=== PATIENT | female | born 1995 | race African-American/Black ===

== ENCOUNTER 2018-01-04 22:04 | Observation (INO) | payer MEDICARE ==
--- NOTE | 2018-01-04 23:16 | PDOC ---
History of Present Illness - General Chief Complaint: Redness To Affected Area Stated Complaint: PAIN Time Seen by Provider: 01/04/18 22:44 History Source: Patient - History of Present Illness Initial Comments: 01/04/18 23:11 Patient is a 22 year old AA female with PMH of diabetes and cellulitis presents to ED with redness of her left lower leg and foot. She has had these symptoms since Thursday. She states that it is cellulitis because she has had the same presentation in the past. Patient was originally in the [facility] ED and was worked up and was ready to be admitted but patient left stating "it was dirty, I didn't get any food, it was taking to long." Patient expresses wanting to be admitted. She has left lower leg erythema, swelling, tenderness but denies fever /chills, abdominal pain, headaches, N/V/D, urinary symptoms. She last ate earlier today. Past History - Past Medical History Allergies/Adverse Reactions: Allergies Allergy/AdvReac Type Severity Reaction Status Date / Time No Known Allergies Allergy Verified 01/04/18 22:14 Home Medications: Ambulatory Orders Insulin (Levemir) [Levemir Vial] 18 unit SQ HS 01/04/18 Metformin HCl [Metformin HCl ER] 1,000 mg PO DAILY 01/04/18 Sitagliptin Phosphate [Januvia] 100 mg PO DAILY 01/04/18 Cephalexin [Keflex] 500 mg PO BID #14 capsule 01/06/18 Miscellaneous Medical Supply [Glucometer Device] 1 each SQ ASDIR #1 kit Miscellaneous Medical Supply [Glucometer Test Strips #100] 1 each SQ ASDIR #10 box 01/06/18 Miscellaneous Medical Supply [Lancets] 1 each SQ ASDIR #1 box 01/06/18 COPD: No Diabetes: Yes (Type 2) Other medical history: L leg lymphedema - Suicide/Smoking/Psychosocial Hx Smoking History: Never smoked Have you smoked in the past 12 months: No Information on smoking cessation initiated: No Hx Alcohol Use: No Drug/Substance Use Hx: No Substance Use Type: None Review of Systems - Review of Systems Able to Perform ROS?: Yes Constitutional: No: Chills, Fever, Weakness HEENTM: No: Blurred Vision, Throat Pain Respiratory: No: Cough, Shortness of Breath, Wheezing Cardiac (ROS): No: Chest Pain ABD/GI: No: Abdominal Distended, Diarrhea, Nausea, Vomiting : Yes: Other (LMP December 21) Integumentary: Yes: See HPI, Erythema (left lower extremity, wrapping around and extending to the foot) *Physical Exam - Vital Signs Last Vital Signs Temp Pulse Resp BP Pulse Ox 98.0 F 114 H 18 124/87 99 01/04/18 22:14 01/04/18 22:14 01/04/18 22:14 01/04/18 22:14 01/04/18 22:14 - Physical Exam General Appearance: Yes: Nourished, Obese. No: Apparent Distress HEENT: positive: EOMI, Normal ENT Inspection Neck: positive: Supple Respiratory/Chest: positive: Lungs Clear, Normal Breath Sounds. negative: Crackles, Rales, Rhonchi Cardiovascular: positive: Regular Rhythm, Regular Rate, S1, S2. negative: JVD, Murmur Vascular Pulses: Dorsalis-Pedis (R): 2+ Gastrointestinal/Abdominal: positive: Normal Bowel Sounds, Soft. negative: Guarding, Rebound, Tenderness Extremity: positive: Tender (left lower leg), Swelling (left lower leg including left foot), Erythema (left lower leg including left foot) Neurologic: positive: director digital advertising II-XII NML intact, Fully Oriented, Alert ED Treatment Course - LABORATORY CBC & Chemistry Diagram: 01/06/18 06:15 01/06/18 06:15 - ADDITIONAL ORDERS Additional order review: Doppler of RLE to r/o DVT Medical Decision Making - Medical Decision Making 01/09/18 18:44 Patient is a 22 yo AA female with PMH of DM and cellulitis presented to ED with her cousins for cellulitis treatment. She was originally at [facility], but patient left because she was "not happy with the service". In the ED, patient was started on Cefazolin. Doppler of R lower leg was ordered to rule out DVT. Patient was handed off to Dr. Ridley. *DC/Admit/Observation/Transfer Diagnosis at time of Disposition: Lymphedema - Discharge Dispostion Disposition: HOME Condition at time of disposition: Good - Prescriptions - Referrals - Patient Instructions - Post Discharge Activity
--- NOTE | 2018-01-04 23:33 | PDOC ---
Attending Attestation - Resident Resident Name: Katherine Gordon - ED Attending Attestation I have performed the following: I have examined & evaluated the patient, The case was reviewed & discussed with the resident, I agree w/resident's findings & plan, Exceptions are as noted <Marck Abernathy - Last Filed: 01/05/18 01:19> - HPI HPI: 01/05/18 00:04 The patient is 22-year-old female with past medical history of DM and cellulitis presents to the emergency department with L. lower extremity redness. Patient presents with redness to the L. lower leg for the past 2 days. The patient reports going to [email or web address] last night, where a workup was started but the patient states she AMAed before completion. Denies fever, chills, cough or a headache. Denies chest pain or shortness of breath. Denies numbness, tingling or loss of sensations. Denies vertigo or dizziness. Allergies: Unsure of antibiotic allergies. LMP: 12/21/2017 Social history: None reported Surgical history: None reported PCP: None reported. - Physicial Exam PE: 01/05/18 00:05 GENERAL: Well developed, well nourished. Awake and alert. No acute distress. HEENT: Normocephalic, atraumatic. PERRLA, EOMI. No conjunctival pallor. Sclera are non- icteric. Moist mucous membranes. Oropharynx is clear. CARDIOVASCULAR: Regular rate and rhythm. No murmurs, rubs, or gallops. Distal pulses are 2+ and symmetric. PULMONARY: No evidence of respiratory distress. Lungs clear to auscultation bilaterally. No wheezing, rales or rhonchi. ABDOMINAL: Soft. Non-tender. Non-distended. No rebound or guarding. No organomegaly. Normoactive bowel sounds. MUSCULOSKELETAL Normal range of motion at all joints. No bony deformities or tenderness. No CVA tenderness. EXTREMITIES: (+) Swelling to the L. lower extremity from the knee down to the foot. Erythema noted. No warmth. No cyanosis. No clubbing. No calf tenderness. SKIN: (+) Not warm. dry. Normal capillary refill. No rashes. No jaundice. - Medical Decision Making 01/05/18 00:07 Documentation prepared by Lisa Sierra, acting as medical record transcriber for Marck Abernathy DO. 01/05/18 01:22 Hu Grace MD 01/05/2018 01:08 EST EXAM: Venous duplex unilateral left lower extremity HISTORY: Rule out DVT COMPARISON: None. FINDINGS: There is no DVT in the left lower extremity. IMPRESSION: No DVT. <Lisa Sierra - Last Filed: 01/05/18 01:22>
[2018-01-04] MEDS ORDERED: CEFAZOLIN 1 GM/D5W 1 GM/50 ML BAG IVPB ONE (23:48)
[2018-01-05] MEDS ORDERED: ceFAZolin SODIUM 1 GM VIAL ONE ×3 (00:29→16:47)
[2018-01-05 00:38] LABS: BASO % 0.6 % (0-2.0); EOS % 0.7 % (0-4.5); HEMATOCRIT 37.4 % (32.4-45.2); HEMOGLOBIN 12.1 GM/dL (10.7-15.3); LYMPH % 21.1 % (8-40); MCH 24.2 pg (25.7-33.7); MCHC 32.4 g/dl (32.0-36.0); MEAN CELL VOLUME 74.7 fl (80-96); MEAN PLT VOLUME 9.2 fl (7.5-11.1); MONO % 4.7 % (3.8-10.2); NEUT % 72.9 % (42.8-82.8); PLATELET COUNT 298 K/MM3 (134-434); RBC 5.01 M/mm3 (3.60-5.2); RDW 16.3 % (11.6-15.6); WHITE BLOOD COUNT 20.3 K/mm3 (4.0-10.0)
[2018-01-05 01:11] LABS: ALBUMIN 3.2 g/dl (3.4-5.0); ALK PHOS 90 U/L (45-117); ANION GAP 8 (8-16); BILIRUBIN,TOTAL 0.3 mg/dL (0.2-1.0); BLOOD UREA NITROGEN 14 mg/dL (7-18); CALCIUM 8.8 mg/dL (8.5-10.1); CHLORIDE 102 mmol/L (98-107); CO2 26 mmol/L (21-32); CREATININE 0.9 mg/dL (0.55-1.02); GLUCOSE,RANDOM 185 mg/dL (74-106); SGPT/ALT 24 U/L (12-78); SODIUM 136 mmol/L (136-145)
[2018-01-05 01:13] LABS: POTASSIUM 4.2 mmol/L (3.5-5.1)
[2018-01-05 01:14] LABS: SGOT/AST 24 U/L (15-37)
--- NOTE | 2018-01-05 01:24 | PDOC ---
*Physical Exam - Vital Signs Last Vital Signs Temp Pulse Resp BP Pulse Ox 98.0 F 114 H 18 124/87 99 01/04/18 22:14 01/04/18 22:14 01/04/18 22:14 01/04/18 22:14 01/05/18 00:44 ED Treatment Course - LABORATORY CBC & Chemistry Diagram: 01/05/18 00:20 01/05/18 00:20 - ADDITIONAL ORDERS Additional order review: Laboratory Results 01/05/18 01/05/18 01/05/18 00:41 00:30 00:20 Sodium Potassium Chloride Carbon Dioxide Anion Gap BUN Creatinine Creat Clearance w eGFR POC Glucometer 202.98885 Random Glucose Lactic Acid 1.6 Calcium Total Bilirubin AST ALT Alkaline Phosphatase Total Protein Albumin Urine HCG, Qual Negative 01/05/18 00:20 Sodium 136 Potassium 4.2 Chloride 102 Carbon Dioxide 26 Anion Gap 8 BUN 14 Creatinine 0.9 Creat Clearance w eGFR > 60 POC Glucometer Random Glucose 185 H Lactic Acid Calcium 8.8 Total Bilirubin 0.3 AST 24 ALT 24 Alkaline Phosphatase 90 Total Protein 8.0 Albumin 3.2 L Urine HCG, Qual 01/05/18 01/05/18 00:41 00:20 RBC 5.01 MCV 74.7 L MCHC 32.4 RDW 16.3 H MPV 9.2 Neutrophils % 72.9 Lymphocytes % 21.1 Monocytes % 4.7 Eosinophils % 0.7 Basophils % 0.6 POC Glucometer 202.71202 - Medications Given in the ED: ED Medications Discontinued Medications Generic Name Dose Route Start Last Admin Trade Name Freq PRN Reason Stop Dose Admin Cefazolin Sodium 1 gm in 50 mls @ 100 mls/hr 01/04/18 23:48 01/05/18 00:43 Ancef 1 Gm Premixed Ivpb - IVPB 01/05/18 00:17 100 mls/hr ONCE ONE Administration Medical Decision Making - Medical Decision Making 01/05/18 01:25 WBC elevated IV Abx already given will end up in Med surg Hosp service. *DC/Admit/Observation/Transfer Diagnosis at time of Disposition: Lymphedema - Discharge Dispostion Condition at time of disposition: Stable Decision to Admit order: Yes - Referrals - Patient Instructions - Post Discharge Activity
--- NOTE | 2018-01-05 03:28 | HP ---
CHIEF COMPLAINT: swelling and redness of left lower extremity and foot PCP: HISTORY OF PRESENT ILLNESS: 22 y/o female presents with redness of left lower extremity starting under the knee and progressing to the left foot. States this began on Thursday and admits to subjective fevers for which she took OTC Motrin. Admits to tingling of left lower extremity. She has had past occurrence of cellulitis of left foot and lower extremity approximately 6 months ago. States she was given Vancomycin and had allergic reaction of itchyness for which she was given Benadryl. ER course was notable for: (1)cefazolin (2)doppler US of left lower extremity (3) Recent Travel: PAST MEDICAL HISTORY: DM II, cellulitis PAST SURGICAL HISTORY: denies Social History: Smoking: denies Alcohol: socially (approximately 1 drink/ month) Drugs: denies Family History: Allergies No Known Allergies Allergy (Verified 01/04/18 22:14) HOME MEDICATIONS: Home Medications Medication Instructions Recorded Insulin (Levemir) [Levemir Vial] 18 unit SQ HS 01/04/18 Metformin HCl [Metformin HCl ER] 1,000 mg PO DAILY 01/04/18 Sitagliptin Phosphate [Januvia] 100 mg PO DAILY 01/04/18 REVIEW OF SYSTEMS CONSTITUTIONAL: Admits: fever. Denies: chills, generalized weakness CARDIOVASCULAR: Absent: chest pain, syncope, palpitations RESPIRATORY: Absent: cough, shortness of breath, wheezing GASTROINTESTINAL: Absent: abdominal pain, nausea, vomiting, diarrhea SKIN: Admits: left lower extremity erythema, swelling NEUROLOGIC: Absent: headache, focal weakness, dizziness, PHYSICAL EXAMINATION Vital Signs - 24 hr 01/04/18 01/05/18 01/05/18 22:14 00:44 03:07 Temperature 98.0 F Pulse Rate 114 H Pulse Rate [ 91 H Right] Respiratory 18 18 Rate Blood Pressure 124/87 Blood Pressure 122/80 [Left Arm] O2 Sat by Pulse 99 99 100 Oximetry (%) GENERAL: Alert, awake, oriented, no acute distress. HEENT: NCAT, PERRL, EOMI, LUNGS: Clear to auscultation B/L. No wheezes crackles. HEART: RRR. S1, S2 auscultated no murmurs, rubs, gallops ABDOMEN: Soft, nontender to palpation. Bowel sounds auscultated X4 quadrants. No guarding, or rebound. EXTREMITIES: 2+ radial and dorsalis pedis pulses B/L. Left lower extremity below the knee, and foot swollen, erythematous. No streaking. Cracking of skin noted in between 4th and 5th toe of left foot. Laboratory Results - last 24 hr 01/05/18 01/05/18 01/05/18 00:20 00:20 00:20 WBC 20.3 H RBC 5.01 Hgb 12.1 Hct 37.4 MCV 74.7 L MCH 24.2 L MCHC 32.4 RDW 16.3 H Plt Count 298 MPV 9.2 Absolute Neuts (auto) 14.8 Neutrophils % 72.9 Lymphocytes % 21.1 Monocytes % 4.7 Eosinophils % 0.7 Basophils % 0.6 Nucleated RBC % 0 Sodium 136 Potassium 4.2 Chloride 102 Carbon Dioxide 26 Anion Gap 8 BUN 14 Creatinine 0.9 Creat Clearance w eGFR > 60 POC Glucometer Random Glucose 185 H Lactic Acid 1.6 Calcium 8.8 Total Bilirubin 0.3 AST 24 ALT 24 Alkaline Phosphatase 90 Total Protein 8.0 Albumin 3.2 L Urine HCG, Qual 01/05/18 01/05/18 00:30 00:41 WBC RBC Hgb Hct MCV MCH MCHC RDW Plt Count MPV Absolute Neuts (auto) Neutrophils % Lymphocytes % Monocytes % Eosinophils % Basophils % Nucleated RBC % Sodium Potassium Chloride Carbon Dioxide Anion Gap BUN Creatinine Creat Clearance w eGFR POC Glucometer 202.39880 Random Glucose Lactic Acid Calcium Total Bilirubin AST ALT Alkaline Phosphatase Total Protein Albumin Urine HCG, Qual Negative ASSESSMENT/PLAN: #Cellulitis -Left lower extremity and foot erythema, swelling, and tenderness -Begin Zosyn and Clindamycin -ID consult and Podiatry consult requested -F/U blood cultures #Diabetes II -Continue home medication of Levemir 18 units -Insulin sliding scale #Morbid obesity -BMI 48.4 -Professor Of Voice consult requested #Prophylaxis -5000units Heparin subq TID FEN No IV fluids No electrolyte repletion Diabetic diet Visit type - Emergency Visit Emergency Visit: Yes ED Registration Date: 01/05/18 Care time: The patient presented to the Emergency Department on the above date and was hospitalized for further evaluation of their emergent condition. - New Patient This patient is new to me today: Yes Date on this admission: 01/05/18 - Critical Care Critical Care patient: No Hospitalist Screening - Colonoscopy Questionnaire Colonoscopy Questionnaire: Colonoscopy Questionnaire - Patient: 50 - 75 years old and never had a screening colonoscopy: Unknown History of colon or rectal polyps, or CA: Unknown History of IBD, Crohn's disease or UC: Unknown History of abdominal radiation therapy as a child: Unknown - Relative: 1 with colon or rectal CA, or polyps at age 60 or younger: Unknown Colon or rectal CA diagnosed at age 45 or younger: Unknown Multiple relatives with colon or rectal CA: Unknown - Outcome: Screening Result: Negative Screen
[2018-01-05] MEDS ORDERED: PIPERACILLIN/TAZOB 3.375 GM 3.375 GM in DEXTROSE 5%-WATER - 50 ML IVPB ONE (03:45)
[2018-01-05 03:54] VITALS: BMI 48.4
[2018-01-05] MEDS ORDERED: DEXTROSE 5%-WATER - 50 ML IVPB ONE (04:15)
[2018-01-05] MEDS ORDERED: PIPERACILLIN/TAZOBACTAM 3.375 GM VIAL IVPB ONE (04:15)
--- NOTE | 2018-01-05 04:23 | PN ---
Teaching Attending Note Name of Resident: Randy Tadeo ATTENDING PHYSICIAN STATEMENT I saw and evaluated the patient. I reviewed the resident's note and discussed the case with the resident. I agree with the resident's findings and plan as documented. SUBJECTIVE: Patient is a 22 year old woman with history of lymphedema, NIDDM and cellulitis presents to the ER with "tightness" and redness of her left lower leg and foot for 3 days. This is her 3rd presentation with same complaint in past 18 months. julio. She has left lower leg erythema, swelling, tenderness but denies fever/ chills, abdominal pain, headaches, N/V/D, urinary symptoms. She is up-to-date with foot care and eye care and is aware of breaks in the skin on the plantar surface of her left foot. OBJECTIVE: Alert, morbidly obese and in no acute distress. Vital Signs Period Temp Pulse Resp BP Sys/Vera Pulse Ox Last 24 Hr 98.0 F-98.2 F 90-114 18-18 122-132/80-87 99-100 HEENT: No Jaundice, eye redness or discharge, PERRLA, EOMI. Normocephalic, atraumatic. External ears are normal and hearing is grossly intact. No nasal discharge. Neck: Supple, nontender. No palpable adenopathy or thyromegaly. No JVD Chest: Good effort. Clear to auscultation and percussion. Heart: Regular. No S3, rub or murmur Abdomen: Not distended, soft, nontender and no HSM. No rebound or guarding. Normoactive bowel sounds. Ext: Bilateral non pitting leg edema. Erythema and tenderness on left foot and leg, warm but not very tender. Crease ulcer between 4th and 5th left toes as as well as plantar surface of 4th toe. Peripheral pulses intact. Skin: Warm and dry. No petechiae, rash or ecchymosis. Neuro: Alert. Oriented x3. CN 2-12 grossly intact. Sensation grossly intact in all four extremities and DTR are symmetric. Current Medications Generic Name Dose Route Start Last Admin Trade Name Freq PRN Reason Stop Dose Admin Heparin Sodium (Porcine) 5,000 unit 01/05/18 06:00 Heparin - SQ TID CLAUDINE Piperacillin Sod/Tazobactam 50 mls @ 100 mls/hr 01/05/18 10:00 Sod 3.375 gm/ Dextrose IVPB Q8H-IV [facility] Protocol Clindamycin Phosphate 600 mg in 50 mls @ 100 mls/hr 01/05/18 10:00 Cleocin 600 Mg Premix Ivpb - IVPB Q8H-IV [facility] Protocol Home Medications Medication Instructions Recorded Insulin (Levemir) [Levemir Vial] 18 unit SQ HS 01/04/18 Metformin HCl [Metformin HCl ER] 1,000 mg PO DAILY 01/04/18 Sitagliptin Phosphate [Januvia] 100 mg PO DAILY 01/04/18 Abnormal Lab Results 01/05/18 01/05/18 00:20 00:20 WBC 20.3 H MCV 74.7 L MCH 24.2 L RDW 16.3 H Random Glucose 185 H Albumin 3.2 L ASSESSMENT AND PLAN: 1. Cellulitis of left leg and foot - Had questionable allergic reaction to vancomycin, so will treat with Zosyn and Clindamycin pending culture report. The breaks in the skin on her left foot may be the source of recurrent infection. Patient counseled about diabetes foot care and eye care. Will consult podiatry and wound care. 2. DM - For now, we will hold her oral hypoglycemic agents and implement sliding scale insulin regimen. 3. Morbid obesity - Will provide patient all the necessary assistance to facilitate kezia loss and consult the meat and poultry inspector. 4. DVT prophylaxis - Heparin 5000u sq tid. 5. Advance directives - Full code
[2018-01-05] MEDS: HEPARIN NA (PORCINE) 5,000 UNITS/ML 1ML VIAL SQ SCH ×3 (05:44→21:19)
[2018-01-05] MEDS ORDERED: CLINDAMYCIN 600MG PREMIX IVPB 600 MG/50 ML BAG IVPB SCH (10:00)
[2018-01-05] MEDS ORDERED: PIPERACILLIN/TAZOB 3.375 GM 3.375 GM in DEXTROSE 5%-WATER - 50 ML IVPB SCH (10:00)
--- NOTE | 2018-01-05 10:59 | PN ---
Progress Note (short form) - Note Progress Note: ID consult dictated imp/reccd 22 year old female with recently diagnosed NIDDM, chronic lylmphedema LLE , recurrent cellulitis of the RLE (fourth time in 2 years) admitted with 3 day history of LLE started Thursday, felt like she had a fever, leg was red and swollen, seen at [facility]- got a dose of vancomycin and left came to [facility] yesterday with the same complaints no further fevers LLE cellulitis Chronic LLE lymphedema NIDDM obesity tinea pedis no history of MRSA no prior antibiotics as outpt received cefazolin, clindamycin , and zosyn continue cefazolin with transition to keflex when improved f/u cultures and labs antifungal foot powder needs diabetes education [facility] Problem List - Problems (1) Cellulitis Code(s): L03.90 - CELLULITIS, UNSPECIFIED Qualifiers: Laterality: left (2) Lymphedema Code(s): I89.0 - LYMPHEDEMA, NOT ELSEWHERE CLASSIFIED (3) Diabetes Code(s): E11.9 - TYPE 2 DIABETES MELLITUS WITHOUT COMPLICATIONS (4) Morbid obesity with BMI of 45.0-49.9, adult Code(s): E66.01 - MORBID (SEVERE) OBESITY DUE TO EXCESS CALORIES; Z68.42 - BODY MASS INDEX (BMI) 45.0-49.9, ADULT (5) Tinea pedis Code(s): B35.3 - TINEA PEDIS
[2018-01-05 11:29] LABS: URINE APPEARANCE TURBID; URINE BILIRUBIN NEGATIVE (<2.0 mg/dL); URINE COLOR STRAW; URINE GLUCOSE (UA) NEGATIVE (NEGATIVE); URINE KETONE NEGATIVE (NEGATIVE); URINE LEUK ESTERASE NEGATIVE (NEGATIVE); URINE NITRITE NEGATIVE (NEGATIVE); URINE PROTEIN NEGATIVE (NEGATIVE); URINE UROBILINOGEN NEGATIVE mg/dL (0.2-1.0)
[2018-01-05] MEDS ORDERED: DEXTROSE 5%-WATER 100 ML IVPB ONE ×2 (11:49→16:47)
[2018-01-05] MEDS: CEFAZOLIN 2 GM in DEXTROSE 5%-WATER 100 ML IVPB SCH ×2 (11:52→17:36)
--- NOTE | 2018-01-05 12:20 | CONS ---
DATE OF CONSULTATION: 01/05/2018 REQUESTING PHYSICIAN: The hospitalist service. HISTORY OF PRESENT ILLNESS: This is a 22-year-old woman who presents to the emergency room with erythema of her left lower extremity. She has a history of chronic lymphedema of that leg, which she reports she has had since childhood. This is her 4th episode. Three days ago, on Thursday, she developed erythema and pain of the leg. She felt feverish that day. She felt hot and cold. She was seen at [facility], and she was given a dose of vancomycin. She did not stay and she left. She reports that she was hospitalized in July of this year at [facility] for cellulitis of the leg. At that time, she was found to have diabetes and had a hemoglobin A1c of 12.4. She reports that her glucometer is broken. She has not been checking her sugars. She came yesterday to [place] after she went home from [facility]. She woke up in the morning, and her leg was still swollen. PAST MEDICAL HISTORY: Notable for diabetes, chronic lymphedema of the left lower extremity, cellulitis. She had 2 episodes last year and 2 this year. She has been hospitalized at [facility], at [facility], and now at [place]. SURGICAL HISTORY: Is unremarkable. SOCIAL HISTORY: There is no history of cigarette use. She drinks alcohol occasionally socially. No history of drug use. She lives with her brother. 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 ALLERGIES: No known drug allergies. MEDICATIONS: Include insulin, metformin, and Januvia. FAMILY HISTORY: Mom has a history of diabetes. REVIEW OF SYSTEMS: She reports feeling better today. The leg is less swollen. She denies any further fevers or chills. She has no headache, nausea, vomiting, diarrhea, or dysuria. Of note, she has seen a automotive consultant as an outpatient, a vascular surgeon, she has a tractor trailer driver, and apparently, they are working to get her a pump for her chronic lymphedema. She has a new PCP, as well. PHYSICAL EXAMINATION Vital signs: Her weight is 132 kg. She has been afebrile since admission. Temperature is 98.2; pulse of 87, blood pressure 119/63, respiratory rate 18, saturating 99% on room air. HEENT: She is normocephalic. Her eyes are anicteric. Neck: Supple. Lungs: Clear to auscultation. Heart: Regular rate and rhythm. Abdomen: Soft. She has no inguinal adenopathy. Extremities: She has lymphedema of her left lower extremity. She has minimal warmth. She has some mild patchy erythema below the knee. The leg is not painful to palpation. Of note, she has some tinea pedis of her toes. DIAGNOSTIC DATA: Labs are notable for a white count of 20.3, hemoglobin 12.1, platelets of 298. BUN is 14, creatinine 0.9. LFTs are normal. test is negative. Blood cultures are pending. Duplex of the leg was negative for DVT. SUMMARY: This is a 22-year-old woman with recently diagnosed diabetes, chronic lymphedema of the left lower extremity, recurrent cellulitis of the left lower extremity, admitted with a 3-day history of left lower extremity edema. She received cefazolin, clindamycin, and Zosyn. Of note, she has received vancomycin in the past. She always gets itching and is generally pre-medicated with Benadryl. I would continue cefazolin, would transition to Keflex when improved. I would follow up cultures and labs. Would add antifungal food powder. She needs diabetes education. Has vascular followup ongoing at [facility]. She should be counseled for weight loss, as well. Further recommendations to follow. BROOKE GUPTA M.D. [id number]
[2018-01-05] MEDS: TOLNAFTATE 1% POWDER 45 GM POW TP SCH ×2 (12:38→21:18)
--- NOTE | 2018-01-05 13:56 | PN ---
Teaching Attending Note Name of Resident: Mukul Guerrero ATTENDING PHYSICIAN STATEMENT I saw and evaluated the patient. I reviewed the resident's note and discussed the case with the resident. I agree with the resident's findings and plan as documented. SUBJECTIVE: Feels better . no pain inL Leg OBJECTIVE: NAD Cv: RRR. Lungs: CTAB Ext: L leg with non pitting edema. erythema over dorsal foot, leg and anterior thigh ASSESSMENT AND PLAN: 22 y/o lady with h/o Dm , ad cellulitis who presented with LLE erythema . she was found to have sepsis due to LLE cellulites 1- Sepsis due to LLE cellulites : - appreciate ID Recs . cont cefazolin - antifungal to toes 2- Dm : cont sitagliptin and levemir and SSI dispo ; pending improvement
[2018-01-05] MEDS ORDERED: KETOCONOZOLE 2% TOPICAL CREAM 15 GM TUBE TP SCH (14:00)
--- NOTE | 2018-01-05 14:44 | CONSULT ---
Consult - text type - Consultation Consultation Note: Podiatry Consultation: Pleasant 22 year old DM F presents with LLE swelling/redness. Patient states she has had bouts of flare-ups in the leg for quite some time. She is being managed at [facility] for vascular work up. She denies F/V/N/C/SOB/CP currently. Currently afebrile. Having treatment for lymphedema at [facility] as well. PMHx: IDDM, lymphedema Meds: noted ALL: NKMA ANTONIO: L foot: pedal pulses palpable, TG warm-warmer below the knee, CFT brisk to all toes. Some interdigital maceration noted bilaterally. There is persistent fixed erythema and warmth to the lower extremity below the knee. There is moderate erythema. There is gross edema to the foot and leg below the knee. There is no fluctuance, no purulent drainage, no open wound, no soft tissue crepitus. WBC: 20.3 Blood Cx: pending Imp: 22 year old DM F LLE cellulitis 1. IV abx per Infectious Disease 2. Leg elevation 3. C/w antifungal powder interdigital spaces 4. Xray L foot 5. Thank you for the courtesy of this consultation. Ramandeep Porras DPM
--- NOTE | 2018-01-05 16:16 | PN ---
Physical Exam: SUBJECTIVE: Patient is a 22 y/o female with a history of DM and cellulitis who is admitted for cellulitis of the left lower extremity. She had no events overnight and no complaints. OBJECTIVE: Vital Signs Period Temp Pulse Resp BP Sys/Vera Pulse Ox Last 24 Hr 98.0 F-98.3 F 80-114 18-22 110-132/63-87 97-100 GENERAL: The patient is awake, alert, and fully oriented, in no acute distress. HEAD: Normal with no signs of trauma. EYES: PERRL, extraocular movements intact LUNGS: Breath sounds equal, clear to auscultation bilaterally HEART: Regular rate and rhythm ABDOMEN: Soft, nontender, nondistended, EXTREMITIES: Left lower extremity edema, up to knee, warm to touch, one centimeter clean laceration at base of fourth toe, no pus expressed. 2+ PT pulse , DP pulse not appreciated, 5/5 strength LLE, patient able to ambulate Laboratory Results - last 24 hr 01/05/18 01/05/18 01/05/18 00:20 00:20 00:20 WBC 20.3 H RBC 5.01 Hgb 12.1 Hct 37.4 MCV 74.7 L MCH 24.2 L MCHC 32.4 RDW 16.3 H Plt Count 298 MPV 9.2 Absolute Neuts (auto) 14.8 Neutrophils % 72.9 Lymphocytes % 21.1 Monocytes % 4.7 Eosinophils % 0.7 Basophils % 0.6 Nucleated RBC % 0 Sodium 136 Potassium 4.2 Chloride 102 Carbon Dioxide 26 Anion Gap 8 BUN 14 Creatinine 0.9 Creat Clearance w eGFR > 60 POC Glucometer Random Glucose 185 H Lactic Acid 1.6 Calcium 8.8 Total Bilirubin 0.3 AST 24 ALT 24 Alkaline Phosphatase 90 Total Protein 8.0 Albumin 3.2 L Urine Color Urine Appearance Urine pH Ur Specific [place] Urine Protein Urine Glucose (UA) Urine Ketones Urine Blood Urine Nitrite Urine Bilirubin Urine Urobilinogen Ur Leukocyte Esterase Urine HCG, Qual 01/05/18 01/05/18 01/05/18 00:30 00:41 05:41 WBC RBC Hgb Hct MCV MCH MCHC RDW Plt Count MPV Absolute Neuts (auto) Neutrophils % Lymphocytes % Monocytes % Eosinophils % Basophils % Nucleated RBC % Sodium Potassium Chloride Carbon Dioxide Anion Gap BUN Creatinine Creat Clearance w eGFR POC Glucometer [phone] Random Glucose Lactic Acid Calcium Total Bilirubin AST ALT Alkaline Phosphatase Total Protein Albumin Urine Color Urine Appearance Urine pH Ur Specific [place] Urine Protein Urine Glucose (UA) Urine Ketones Urine Blood Urine Nitrite Urine Bilirubin Urine Urobilinogen Ur Leukocyte Esterase Urine HCG, Qual Negative 01/05/18 01/05/18 10:20 11:54 WBC RBC Hgb Hct MCV MCH MCHC RDW Plt Count MPV Absolute Neuts (auto) Neutrophils % Lymphocytes % Monocytes % Eosinophils % Basophils % Nucleated RBC % Sodium Potassium Chloride Carbon Dioxide Anion Gap BUN Creatinine Creat Clearance w eGFR POC Glucometer 242 Random Glucose Lactic Acid Calcium Total Bilirubin AST ALT Alkaline Phosphatase Total Protein Albumin Urine Color Straw Urine Appearance Turbid Urine pH 5.0 Ur Specific [place] 1.016 Urine Protein Negative Urine Glucose (UA) Negative Urine Ketones Negative Urine Blood Negative Urine Nitrite Negative Urine Bilirubin Negative Urine Urobilinogen Negative Ur Leukocyte Esterase Negative Urine HCG, Qual Active Medications Generic Name Dose Route Start Last Admin Trade Name Freq PRN Reason Stop Dose Admin Heparin Sodium (Porcine) 5,000 unit 01/05/18 06:00 01/05/18 14:51 Heparin - SQ 5,000 unit TID CLAUDINE Administration Cefazolin Sodium 2 gm/ 100 mls @ 200 mls/hr 01/05/18 11:00 01/05/18 11:52 Dextrose IVPB 200 mls/hr Q8H-IV CLAUDINE Administration Insulin Detemir 18 units 01/05/18 22:00 Levemir Vial SQ HS [facility] Sitagliptin Phosphate 100 mg 01/06/18 07:00 Januvia - PO DAILY@0700 CLAUDINE Tolnaftate 1 applic 01/05/18 11:00 01/05/18 12:38 Tinactin 1% Powder - TP 1 applic BID CLAUDINE Administration ASSESSMENT/PLAN: Patient is 22 y/o female who is admitted for cellulitis and abscess of LLE. #LLE cellulitis and abscess -s/p I/D (day 1) - continue Cefazolin (day 1) and Tinactin powder - Xray positive for dorsal swelling, no gross destruction or erosion - f/u blood cultures - diabetic foot care counseling #DM -continue home medications -SS #morbid obesity -BMI 48.4 - dietary consult #DVT ppx -heparin 1,000 unit SQ TID Visit type - Emergency Visit Emergency Visit: No - New Patient This patient is new to me today: Yes Date on this admission: 01/05/18 - Critical Care Critical Care patient: No
[2018-01-05] MEDS ORDERED: diphenhydrAMINE HCL 25 MG CAPSULE (FP) PO ONE (16:17)
[2018-01-05] MEDS ORDERED: INSULIN (LEVEMIR) 100 UNITS/ML UNITS SQ SCH (22:00)
[2018-01-05] MEDS ORDERED: MELATONIN 1 MG TABLET PO ONE (22:45)
[2018-01-06] MEDS ORDERED: ceFAZolin SODIUM 1 GM VIAL ONE (01:02)
[2018-01-06] MEDS ORDERED: DEXTROSE 5%-WATER 100 ML IVPB ONE (01:02)
[2018-01-06] MEDS: CEFAZOLIN 2 GM/D5W 2 GM/50 ML ML IVPB SCH ×2 (01:14→10:48)
[2018-01-06] MEDS: HEPARIN NA (PORCINE) 5,000 UNITS/ML 1ML VIAL SQ SCH ×2 (05:04→14:08)
[2018-01-06 06:51] LABS: BASO % 0.4 % (0-2.0); EOS % 1.9 % (0-4.5); HEMATOCRIT 35.1 % (32.4-45.2); HEMOGLOBIN 11.6 GM/dL (10.7-15.3); LYMPH % 36.8 % (8-40); MCH 24.7 pg (25.7-33.7); MCHC 33.1 g/dl (32.0-36.0); MEAN CELL VOLUME 74.7 fl (80-96); MEAN PLT VOLUME 8.8 fl (7.5-11.1); MONO % 7.3 % (3.8-10.2); NEUT % 53.6 % (42.8-82.8); PLATELET COUNT 252 K/MM3 (134-434); WHITE BLOOD COUNT 11.1 K/mm3 (4.0-10.0)
[2018-01-06] MEDS ORDERED: sitaGLIPtin PHOSPHATE 100 MG TABLET (FP) PO SCH (07:00)
[2018-01-06 07:20] LABS: ALBUMIN 2.8 g/dl (3.4-5.0); ALK PHOS 74 U/L (45-117); ANION GAP 9 (8-16); BILIRUBIN,TOTAL 0.3 mg/dL (0.2-1.0); BLOOD UREA NITROGEN 6 mg/dL (7-18); CALCIUM 8.6 mg/dL (8.5-10.1); CHLORIDE 103 mmol/L (98-107); CO2 27 mmol/L (21-32); CREATININE 0.6 mg/dL (0.55-1.02); GLUCOSE,RANDOM 146 mg/dL (74-106); POTASSIUM 4.2 mmol/L (3.5-5.1); SGOT/AST 11 U/L (15-37); SGPT/ALT 18 U/L (12-78); SODIUM 139 mmol/L (136-145); TOT PROT 7.2 g/dl (6.4-8.2)
--- NOTE | 2018-01-06 10:02 | PN ---
Teaching Attending Note Name of Resident: Chely Hung ATTENDING PHYSICIAN STATEMENT I saw and evaluated the patient. I reviewed the resident's note and discussed the case with the resident. I agree with the resident's findings and plan as documented. SUBJECTIVE: Patient is feeling better. No fever or chills, the LLE is swollen. OBJECTIVE: Vital Signs Temperature 97.6 F 01/06/18 06:00 Pulse Rate 77 01/06/18 06:00 Respiratory Rate 19 01/06/18 06:00 Blood Pressure 100/53 01/06/18 06:00 O2 Sat by Pulse Oximetry (%) 99 01/06/18 04:00 CBCD WBC 11.1 K/mm3 (4.0-10.0) H 01/06/18 06:15 RBC 4.70 M/mm3 (3.60-5.2) 01/06/18 06:15 Hgb 11.6 GM/dL (10.7-15.3) 01/06/18 06:15 Hct 35.1 % (32.4-45.2) 01/06/18 06:15 MCV 74.7 fl (80-96) L 01/06/18 06:15 MCHC 33.1 g/dl (32.0-36.0) 01/06/18 06:15 RDW 16.0 % (11.6-15.6) H 01/06/18 06:15 Plt Count 252 K/MM3 (134-434) 01/06/18 06:15 MPV 8.8 fl (7.5-11.1) 01/06/18 06:15 CMP Sodium 139 mmol/L (136-145) 01/06/18 06:15 Potassium 4.2 mmol/L (3.5-5.1) 01/06/18 06:15 Chloride 103 mmol/L (98-107) 01/06/18 06:15 Carbon Dioxide 27 mmol/L (21-32) 01/06/18 06:15 Anion Gap 9 (8-16) 01/06/18 06:15 BUN 6 mg/dL (7-18) L 01/06/18 06:15 Creatinine 0.6 mg/dL (0.55-1.02) 01/06/18 06:15 Creat Clearance w eGFR > 60 (>60) 01/06/18 06:15 Random Glucose 146 mg/dL (74-106) H 01/06/18 06:15 Calcium 8.6 mg/dL (8.5-10.1) 01/06/18 06:15 Total Bilirubin 0.3 mg/dL (0.2-1.0) 01/06/18 06:15 AST 11 U/L (15-37) L 01/06/18 06:15 ALT 18 U/L (12-78) 01/06/18 06:15 Alkaline Phosphatase 74 U/L (45-117) D 01/06/18 06:15 Total Protein 7.2 g/dl (6.4-8.2) 01/06/18 06:15 Albumin 2.8 g/dl (3.4-5.0) L 01/06/18 06:15 Current Medications Generic Name Dose Route Start Last Admin Trade Name Freq PRN Reason Stop Dose Admin Heparin Sodium (Porcine) 5,000 unit 01/05/18 06:00 01/06/18 05:04 Heparin - SQ Not Given TID [facility] Cefazolin Sodium/Dextrose 2 gm in 50 mls @ 100 mls/hr 01/06/18 02:00 01:14 Ancef 2 Gm Premixed Ivpb - IVPB 100 mls/hr Q8H-IV [facility] Administration Insulin Detemir 18 units 01/05/18 22:00 01/05/18 21:17 Levemir Vial SQ 18 unit HS [facility] Administration Sitagliptin Phosphate 100 mg 01/06/18 07:00 01/06/18 06:24 Januvia - PO 100 mg DAILY@0700 [facility] Administration Tolnaftate 1 applic 01/05/18 11:00 01/05/18 21:18 Tinactin 1% Powder - TP Not Given BID [facility] Home Medications Medication Instructions Recorded Insulin (Levemir) [Levemir Vial] 18 unit SQ HS 01/04/18 Metformin HCl [Metformin HCl ER] 1,000 mg PO DAILY 01/04/18 Sitagliptin Phosphate [Januvia] 100 mg PO DAILY 01/04/18 Home Medications Medication Instructions Recorded Insulin (Levemir) [Levemir Vial] 18 unit SQ HS 01/04/18 Metformin HCl [Metformin HCl ER] 1,000 mg PO DAILY 01/04/18 Sitagliptin Phosphate [Januvia] 100 mg PO DAILY 01/04/18 Cephalexin [Keflex] 500 mg PO BID #14 capsule 01/06/18 Miscellaneous Medical Supply 1 each SQ ASDIR #1 kit 01/06/18 [Glucometer Device] Miscellaneous Medical Supply 1 each SQ ASDIR #10 box 01/06/18 [Glucometer Test Strips #100] Miscellaneous Medical Supply 1 each SQ ASDIR #1 box 01/06/18 [Lancets] PE: LLe improving , positive for Lymphedema as per patient from childhood. rest of PE per resident's note. ASSESSMENT AND PLAN: Patient is a 22 yo female presented with LLE cellulitis . #LLE cellulites s/p IV ancef will discharge the patient on po keflex 500mg x 7 day. Given time off till Thursday. # Dm : continue home meds , given Rx for glucometer. [facility] Discharge patient home: 35 min.
--- NOTE | 2018-01-06 10:54 | PN ---
Progress Note, Physician History of Present Illness: Awake, alert No c/o leg pain No fever/ chills WBC improved - Current Medication List Current Medications: Active Medications Heparin Sodium (Porcine) (Heparin -) 5,000 unit SQ TID [facility] Last Admin: 01/06/18 05:04 Dose: Not Given Cefazolin Sodium/Dextrose (Ancef 2 Gm Premixed Ivpb -) 2 gm in 50 mls @ 100 mls /hr IVPB Q8H-IV [facility] Last Admin: 01/06/18 10:48 Dose: 100 mls/hr Insulin Detemir (Levemir Vial) 18 units SQ HS [facility] Last Admin: 01/05/18 21:17 Dose: 18 unit Sitagliptin Phosphate (Januvia -) 100 mg PO DAILY@0700 [facility] Last Admin: 01/06/18 06:24 Dose: 100 mg Tolnaftate (Tinactin 1% Powder -) 1 applic TP BID [facility] Last Admin: 01/05/18 21:18 Dose: Not Given - Objective Vital Signs: Vital Signs Temperature 98.2 F 01/06/18 10:48 Pulse Rate 90 01/06/18 10:48 Respiratory Rate 19 01/06/18 10:48 Blood Pressure 127/72 01/06/18 10:48 O2 Sat by Pulse Oximetry (%) 99 01/06/18 04:00 Constitutional: Yes: Obese Cardiovascular: Yes: Regular Rate and Rhythm, S1, S2 Respiratory: Yes: CTA Bilaterally Gastrointestinal: Yes: Normal Bowel Sounds, Soft. No: Tenderness Extremities: Yes: Other (L LE lymphedema; slight erythema/ warmth) Labs: CBC, BMP 01/06/18 06:15 01/06/18 06:15 Assessment/Plan Cellulitis L LE Chronic L LE lymphedema Leukocytosis- improved Morbid obesity Substitute keflex 500mg po q6h x 7d
[2018-01-06] MEDS: TOLNAFTATE 1% POWDER 45 GM POW TP SCH (14:08)
[2018-01-06 14:47] VITALS: BP 127/73; PULSE 71; TEMP 98.7
--- NOTE | 2018-01-06 15:19 | DS ---
Physical Exam: SUBJECTIVE: Patient is a 22 y/o female with a history of DM and cellulitis who is admitted for cellulitis of the left lower extremity. She had no events overnight and has no complaints for today. She reports she thinks the swelling has reduced. OBJECTIVE: Vital Signs Period Temp Pulse Resp BP Sys/Vera Pulse Ox Last 24 Hr 97.6 F-98.7 F 71-90 19-20 100-130/52-80 99-99 PHYSICAL EXAM GENERAL: The patient is awake, alert, and fully oriented, in no acute distress. HEAD: Normal with no signs of trauma. EYES: PERRL, extraocular movements intact LUNGS: Breath sounds equal, clear to auscultation bilaterally HEART: Regular rate and rhythm ABDOMEN: Soft, nontender, nondistended, EXTREMITIES: Left lower extremity edema, up to knee, warm to touch, one centimeter clean laceration at base of fourth toe, no pus expressed. 2+ PT pulse , DP pulse not appreciated, 5/5 strength LLE, patient able to ambulate LABS Laboratory Results - last 24 hr 01/05/18 01/05/18 01/06/18 17:38 21:14 06:15 WBC 11.1 H RBC 4.70 Hgb 11.6 Hct 35.1 MCV 74.7 L MCH 24.7 L MCHC 33.1 RDW 16.0 H Plt Count 252 MPV 8.8 Absolute Neuts (auto) 5.9 Neutrophils % 53.6 D Lymphocytes % 36.8 D Monocytes % 7.3 Eosinophils % 1.9 D Basophils % 0.4 Nucleated RBC % 0 Sodium Potassium Chloride Carbon Dioxide Anion Gap BUN Creatinine Creat Clearance w eGFR POC Glucometer 261 281 Random Glucose Calcium Total Bilirubin AST ALT Alkaline Phosphatase Total Protein Albumin 01/06/18 01/06/18 01/06/18 06:15 06:23 12:23 WBC RBC Hgb Hct MCV MCH MCHC RDW Plt Count MPV Absolute Neuts (auto) Neutrophils % Lymphocytes % Monocytes % Eosinophils % Basophils % Nucleated RBC % Sodium 139 Potassium 4.2 Chloride 103 Carbon Dioxide 27 Anion Gap 9 BUN 6 L Creatinine 0.6 Creat Clearance w eGFR > 60 POC Glucometer 154 290 Random Glucose 146 H Calcium 8.6 Total Bilirubin 0.3 AST 11 L ALT 18 Alkaline Phosphatase 74 D Total Protein 7.2 Albumin 2.8 L HOSPITAL COURSE: Date of Admission:01/05/18 Patient came to the hospital with swelling and a feeling of tightness in her skin of her lower left foot. She was diagnosed with cellulitis and has had cellulitis three times in the past. Patient was given one dose of Ancef and Zosyn in the ED. She was given Cefazolin for two days where her symptoms improved. She will be treated outpatient with Keflex 500 mg BID for 7 days. Patient counseled on the importance of management of her diabetes. She has been referred to Endocrinology outpatient and prescribed new glucometer. Date of Discharge: 01/06/18 Minutes to complete discharge: 20 Discharge Summary Reason For Visit: LYMPHEDEMA Condition: Good - Instructions Diet, Activity, Other Instructions: you were admitted to the hospital for an infection in the skin of your foot called cellulitis. You were began on antibiotics and your symptoms have improved. You will continue to take your antibiotics (Keflex 500 mg twice a day ) for 7 days. Increased blood sugars from your diabetes could lead to increased infections so it is important to control your sugars. Continue your home diabetic medications. We prescribed you with a glucometer which you will use to help monitor your sugar levels. You should follow up with Dr. Euceda to control your diabetes. You should see your primary care physician within one week. You may return to work on Thursday01/11/2018 Please return to the Emergency department if your symptoms worsen or you develop any new symptoms. Referrals: Nick Euceda MD [Staff Physician] - Disposition: HOME - Home Medications Comprehensive Discharge Medication List: Ambulatory Orders Insulin (Levemir) [Levemir Vial] 18 unit SQ HS 01/04/18 Metformin HCl [Metformin HCl ER] 1,000 mg PO DAILY 01/04/18 Sitagliptin Phosphate [Januvia] 100 mg PO DAILY 01/04/18 Cephalexin [Keflex] 500 mg PO BID #14 capsule 01/06/18 Miscellaneous Medical Supply [Glucometer Device] 1 each SQ ASDIR #1 kit [employer] [Glucometer Test Strips #100] 1 each SQ ASDIR #10 box 01/06/18 Miscellaneous Medical Supply [Lancets] 1 each SQ ASDIR #1 box 01/06/18 This patient is new to me today: No Emergency Visit: No Critical Care patient: No - Discharge Referral Referred to [facility] Med P.C.: No
== END 2018-01-06 14:30 | disposition home or self-care (01) ==
LOC: JER 22:04 → JERBED 01-05 01:24 → UNDOADMOB 01-05 01:44 → JERBED 01-05 01:44 → J5S 01-05 03:25
PROVIDERS: ADMIT Internal Medicine; ATTEND Internal Medicine
PROC: 3E03329 Introduction of Other Anti-infective into Peripheral Vein, Percutaneous Approach (ICD-10-PCS; principal; 2018-01-05)
PROC: 3E013VG Introduction of Insulin into Subcutaneous Tissue, Percutaneous Approach (ICD-10-PCS; 2018-01-05)
DX: L03.116 Cellulitis of left lower limb (principal); I89.0 Lymphedema, not elsewhere classified; E11.9 Type 2 diabetes mellitus without complications; B35.3 Tinea pedis; D72.829 Elevated white blood cell count, unspecified; E66.01 Morbid (severe) obesity due to excess calories; Z68.42 Body mass index [BMI] 45.0-49.9, adult; Z79.4 Long term (current) use of insulin; Z79.84 Long term (current) use of oral hypoglycemic drugs
CPT/HCPCS: 36415; 73630-TC-LT; 80053; 81003; 82962; 83605; 84703; 85025; 87040; 93971-TC; 96365; 96367; 96372; 96375; 96376; 99285-25; G0378; J1644